=== PATIENT | male | born 1990 | race Native Hawaiian/Other Pacific Islander ===

== ENCOUNTER 2016-12-09 07:48 | Day surgery (SDC) | payer OTHER ==
[2016-10-30 13:51] VITALS: BMI 24.3
[2016-12-09] MEDS ORDERED: Lidocaine 1% Inj (20ml) ONE (08:58)
[2016-12-09] MEDS ORDERED: Bupivacaine 0.5% Inj(30mL) ONE (08:58)
[2016-12-09] MEDS ORDERED: ceFAZolin IV 1 gm in Dextrose 1 GM/50 ML BAG IVPB ONE (08:58)
[2016-12-09] MEDS ORDERED: Sodium Chloride 0.9% 500 ML IV ONE (09:20)
[2016-12-09] MEDS ORDERED: Midazolam 2 MG/2 ML VIAL ONE (09:37)
[2016-12-09] MEDS ORDERED: Propofol 10 mg/ml Inj (20 ML) ONE (09:37)
[2016-12-09] MEDS ORDERED: Bacitracin 500 Units/gm Oint Foilpak UD ONE (09:51)
[2016-12-09] MEDS ORDERED: HYDROmorphone 0.5 mg/0.5 ml ISec IVP PRN (09:53)
[2016-12-09] MEDS ORDERED: Lactated Ringer's 1,000 ML IV ONE (10:03)
[2016-12-09 11:11] VITALS: BP 112/76; PULSE 61; RESP 18; TEMP 97; O2SAT 100
--- NOTE | 2016-12-09 11:20 | PCM.SURG1 ---
Surgeon's Initial Post Op Note - Surgeon's Notes Surgeon: Phillip Electrical Panel Builder: [email or web address] Type of Anesthesia: IV Sedation Anesthesia Administered By: staff Pre-Operative Diagnosis: Vol sterilization Operative Findings: normal vas Post-Operative Diagnosis: same Operation Performed: Bilat vasectomy Specimen/Specimens Removed: bilat vas Estimated Blood Loss: EBL {In ML}: 0 Blood Products Given: N/A Drains Used: No Drains Post-Op Condition: Good Date of Surgery/Procedure: 12/09/16 Time of Surgery/Procedure: 11:20
[2016-12-09] MEDS ORDERED: Oxycodone/Acetaminophen 5/325 mg Tab PO PRN (11:30)
[2016-12-09] MEDS ORDERED: Oxycodone/Acetaminophen 5/325 mg Tab ONE (11:35)
--- NOTE | 2016-12-09 16:54 | OP ---
PROCEDURE DATE: 12/09/2016 PREOPERATIVE DIAGNOSIS: Voluntary sterilization. POSTOPERATIVE DIAGNOSIS: Voluntary sterilization. PROCEDURE FOLLOWS: Prior to the procedure, the patient was asked to sign the detailed informed consent. He is aware that vasectomy is most likely irreversible and that he should pursue other control if irreversibility is a problem. The patient feels that he is 100% sure he never wants children and is willing to proceed with the procedure. He understands the risks and complication including the fact that the vasectomy may not cause permanent infertility and that it is very difficult if not impossible to reverse. The patient signed the consent willing to accept the risks and limitations and he is brought into the room. A time-out was taken according to the rules and regulations of . The patient was anesthetized. He was draped and prepped in the usual manner. The three-finger method was used to grasp the right vas, which was pulled into position next to the scrotal skin. The skin over the vas was anesthetized with 0.5% Marcaine-Xylocaine solution. The incision was made over the vas and carried down through the subcutaneous tissue. Once the vas was visualized, it was grasped and exteriorized. The vas sheath was opened, 1-inch section of vas was removed. The proximal end and the distal end were both tied with 3-0 Prolene suture. The proximal end was buried within the vas sheath. The distal end was left outside the sheath. The 3-0 Chromic was used to close the sheath. The skin was closed in continuous fashion using Chromic suture. The patient tolerated the procedure. The procedure was then repeated on the opposite side with the same precautions. ADDENDUM: In the recovery room, the patient was again reminded that he needs to have a postop sperm count 6 weeks from the vasectomy to assure infertility. Danis Fisher MD
== END 2016-12-09 14:55 | disposition home or self-care (01) ==
LOC: C.SDS 07:48
PROVIDERS: ATTEND Urology
DX: Z30.2 Encounter for sterilization (principal)
CPT/HCPCS: 55250; 88302; J0690; J2250; J2704; J3010; J7040; J7120